=== PATIENT | male | born 2000 | race Caucasian/White ===

== ENCOUNTER 2021-03-03 13:34 | Emergency (ER) | payer OTHER ==
[~2021-03-03] VITALS: Ht 175.3 cm; Wt 84.9 kg
[2021-03-03] MEDS ORDERED: CLOT1CRE56 TOP (15:21)
[2021-03-03] MEDS ORDERED: VALA1TAB5 PO (15:30)
[2021-03-03 15:50] LABS: ALBUMIN 4.6 GM/DL (3.2-5.2); ALT/SGPT 24 U/L (12-78); BILIRUBIN,DIRECT 0.3 MG/DL (0.0-0.2); BILIRUBIN,TOTAL 1.2 MG/DL (0.2-1.0); TOTAL PROTEIN 7.8 GM/DL (6.4-8.2)
[2021-03-03 16:29] LABS: GC DNA AMPLIFICATION NEGATIVE (NEGATIVE)
[2021-03-03 16:38] VITALS: BP 116/70
[2021-03-05 11:17] LABS: HEPATITIS B SURFACE ANTIBODY POSITIVE (POSITIVE)
[2021-03-05 11:28] LABS: HEPATITIS B SURFACE ANTIGEN NEGATIVE (NEGATIVE)
[2021-03-05 11:56] LABS: HEPATITIS C VIRUS ABY INDEX 0.1 INDEX (<0.8)
[2021-03-05 11:57] LABS: HIV 1&2 SCREEN CENTAUR NEGATIVE (NEGATIVE)
[2021-03-06 04:07] LABS: HSV TYPE I IgG SPECIFIC <0.91 index (0.00-0.90); HSV TYPE II IgG SPECIFIC <0.91 index (0.00-0.90)
== END 2021-03-03 16:37 | disposition home or self-care (01) ==
LOC: M ED 13:34
DX: R21 Rash and other nonspecific skin eruption (principal)